=== PATIENT | female | born 1990 | race Caucasian/White ===

== ENCOUNTER 2023-04-28 07:26 | Outpatient (REF) | payer BC, SELFPAY ==
--- NOTE | ~2023-04-28 | CT_ITS ---
EXAMINATION: CT SINUS WITHOUT CONTRAST CLINICAL INFORMATION: 32-year-old with sinonasal polyp and deviated septum. COMPARISON: None available. TECHNIQUE: Volumetric CT imaging of the paranasal sinuses was done with multiplanar reformatted reconstructions. This CT examination was performed using dose optimization techniques as appropriate, variously including the following: *Automated exposure control *Adjustment of mA and/or kV according to patient size (this includes techniques or standardized protocols for targeted exams where dose is matched to indication/reason for exam; i.e. extremities or head) *Use of iterative reconstruction technique DLP: 97 mGy-cm FINDINGS: Nasal Cavity: Nasal septal deviation to the right noted anteroinferiorly. Spur on the right noted. The olfactory recesses are clear. No nasal cavity masses. Nasopharyngeal soft tissues appear symmetric and normal in attenuation. Maxillary Sinuses: Well-pneumatized and clear with bilaterally patent OMCs and intact bony pacheco. Ethmoid Sinuses: Well-pneumatized and clear, with intact bony pacheco. Frontal Sinuses: Frontal sinuses are well pneumatized. There is mild mucosal thickening in the frontal recesses bilaterally. The left frontal recess appears occluded without air-fluid level in the left frontal sinus. The right frontal recess is still patent. There are type II frontal cells in the frontal recesses bilaterally, one of which is opacified on the left. Sphenoid Sinus: Well-pneumatized and clear with bilaterally patent sphenoid ostia. Carotid canals are posterolateral and covered by bone. Additional Findings: The visualized calvarium is intact. The mastoids and middle ear cavities are unopacified. Limited assessment of the included intracranial soft tissue contents. Poorly visualized. Visualized intraorbital soft tissue structures appear grossly unremarkable within the limitations of the exam. Tiny calcified tonsilloliths are seen in the palatine tonsils bilaterally. CT/CT sinus wo IV con IMPRESSION: 1. Nasal septal deviation to the right. 2. Mild mucosal thickening in the frontal recesses bilaterally with occlusion of the left frontal recess. No air-fluid levels. 3. Otherwise, no significant sinonasal inflammatory disease. No definite nasal cavity mass.
== END 2023-04-28 07:27 | disposition home or self-care (01) ==
LOC: HO.CT 07:26
PROVIDERS: PCP Nurse Practitioner Family; Visit Provider Otolaryngology
DX: J33.0 Polyp of nasal cavity (principal); J34.2 Deviated nasal septum
CPT/HCPCS: 70486